=== PATIENT | female | born 1980 | race Two or more races ===

== ENCOUNTER 2023-09-02 16:17 | Emergency (ER) | payer OTHER ==
[~2023-09-02] VITALS: Ht 152.4 cm; Wt 50.8 kg
[2023-09-02] MEDS ORDERED: ACETAMINOPHEN 500 MG GEL..CAP PO ONE (16:52)
[2023-09-02 18:14] LABS: HEMOGLOBIN 14.4 g/dL (12.0-15.00); MEAN CORPUSCULAR HEMOGLOBIN 29.6 pg (27.00-32.0); MEAN CORPUSCULAR HGB CONC 34.4 g/dl (32.0-36.0); PLATELET COUNT 200 K/uL (150-450); RED BLOOD COUNT 4.88 M/uL (4.00-6.00); RED CELL DISTRIBUTION WIDTH 13.6 % (11.5-14.5)
[2023-09-02 18:26] LABS: ALBUMIN 4.1 gm/dL (3.4-5.0); BILIRUBIN TOTAL 0.62 mg/dL (0.3-1.2); CALCIUM 9.4 mg/dL (8.5-10.1); CREATININE SERUM 0.84 mg/dL (0.55-1.02); GLOBULINA 3.7 G/DL (2.4-3.5); POTASSIUM 3.6 mEq/L (3.5-5.1); TOTAL PROTEIN 7.8 gm/dL (6.4-8.2)
[2023-09-02 18:30] LABS: URINE APPEARANCE Cloudy; URINE BILIRRUBIN Negative (NEGATIVE); URINE BLOOD Small; URINE COLOR Yellow; URINE GLUCOSE Negative (NEGATIVE); URINE LEUKOCYTE Negative; URINE NITRATE Negative; URINE PROTEIN Negative (NEGATIVE); URINE UROBILINOGEN 0.2 E.U./dl
[2023-09-02 18:31] LABS: URINE EPITHELIAL CELLS 9.8 uL (0.0-38.8); URINE RBC 51.7 uL (0.0-20.8); URINE WBC 6.9 uL (0.0-23.2)
[2023-09-02] MEDS ORDERED: 0.9 % SODIUM CHLORIDE 1,000 ML IV SCH (19:30)
[2023-09-02] MEDS ORDERED: HYOSCYAMINE SULFATE 0.125 MG TAB.SUBL ONE (19:55)
[2023-09-02] MEDS ORDERED: FAMOtidine 200mg/20ml VIAL ONE (19:56)
[2023-09-02] MEDS ORDERED: HYOSCYAMINE SULFATE 0.125 MG TAB.SUBL SL ONE (20:00)
[2023-09-02] MEDS ORDERED: FAMOTIDINE/PF 20 MG/2 ML VIAL IV PUSH ONE (20:00)
== END 2023-09-03 00:46 | disposition home or self-care (01) ==
LOC: ER 16:18
PROVIDERS: Emergency Medicine
DX: R10.9 Unspecified abdominal pain (principal); Z85.89 Personal history of malignant neoplasm of other organs and systems; Z91.041 Radiographic dye allergy status; Z88.2 Allergy status to sulfonamides; Z88.8 Allergy status to other drugs, medicaments and biological substances
CPT/HCPCS: 36415; 76700; 96365; 96366; 99284; J3490; J7030